=== PATIENT | female | born 1960 | race Caucasian/White ===

== ENCOUNTER 2017-01-24 15:30 | Emergency (ER) | payer OTHER ==
[~2017-01-24] VITALS: Ht 167.6 cm; Wt 73.0 kg
[~2017-01-24 15:30] MED LIST: ACET-868 PO; CALC500T71 PO; LEVO112T8 PO; OMEP20TA68 PO; OXYB5TAB PO; VARE1TAB PO
--- NOTE | 2017-01-24 15:41 | NUR ---
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 PT AMBULATORY. PLACED ON MONITOR. VSS.
[2017-01-24] MEDS ORDERED: HYDROCODONE/APAP 10/325MG 1 EA TABLET PO ONE (16:00)
[2017-01-24] MEDS ORDERED: HYDROCODONE/APAP 10/325MG 1 EA TABLET ONE (16:05)
--- NOTE | 2017-01-24 16:15 | NUR ---
Patient discharged to home in stable condition. Written and verbal after care instructions given. Patient verbalizes understanding of instruction.
[2017-01-24 16:17] VITALS: BP 125/80
== END 2017-01-24 16:20 | disposition home or self-care (01) ==
LOC: ER 15:32
DX: M54.9 Dorsalgia, unspecified (principal); B19.20 Unspecified viral hepatitis C without hepatic coma; J44.9 Chronic obstructive pulmonary disease, unspecified; F17.200 Nicotine dependence, unspecified, uncomplicated; Z90.710 Acquired absence of both cervix and uterus
CPT/HCPCS: 99283; A4606; Z7610